=== PATIENT | female | born 1950 | race Caucasian/White ===

== ENCOUNTER → 2022-06-11 13:00 | Outpatient (CLI) | payer MEDICARE, SELFPAY ==
--- NOTE | ~2022-06-11 | XR_ITS ---
XR lumbar spine 2-3V 06/11/2022 13:57 Indication: Low back pain Procedure: 3 views lumbar spine Comparison: No prior studies for comparison. Findings: There is dextroscoliosis centered at L3. There is disc narrowing at all lumbar levels. Ther e is advanced multilevel facet hypertrophy. No evidence for acute fracture or spondylolisthesis. Ther e is mild atherosclerosis. There are cholecystectomy clips. Sacral foramen are symmetric. Impression: 1: Severe lumbar spondylosis with dextroscoliosis.. Reviewed, dictated and finalized at location A. Impression: 1: Severe lumbar spondylosis with dextroscoliosis..
--- NOTE | ~2022-06-11 | XR_ITS ---
XR hip LT min 2V DATE: 06/11/2022 13:57 INDICATION: Left hip pain TECHNIQUE: AP and lateral views COMPARISON: None FINDINGS: No fracture or dislocation, avascular necrosis or bone destruction. Left hip joint space is relatively well preserved. The pubic symphysis and sacroiliac joints appear intact. IMPRESSION: No significant abnormality Reviewed, dictated and finalized at location A. IMPRESSION: No significant abnormality
== END ==
PROVIDERS: PCP Internal Medicine; Visit Provider Internal Medicine
DX: M54.42 Lumbago with sciatica, left side (principal); M25.552 Pain in left hip; M47.896 Other spondylosis, lumbar region
CPT/HCPCS: 72100; 73502

== ENCOUNTER 2023-10-05 14:06 | Outpatient (CLI) | payer MEDICARE, SELFPAY ==
--- NOTE | ~2023-10-05 | CT_ITS ---
EXAMINATION: CT abdomen pelvis wo/w con DATE: 10/05/2023 14:54 INDICATION: Hematuria. TECHNIQUE: Computed tomography (CT) of the abdomen and pelvis was performed without and with intraven ous contrast using a total of 130 mL Omnipaque-350 intravenous contrast with a double-bolus technique for simultaneous opacification of the renal parenchyma and renal collecting system. Automated exposu re control and iterative reconstruction technique were employed. The dose-length product was 1511.86 mGy-cm. COMPARISON: None FINDINGS: The visualized portions of the lung bases demonstrate mild atelectasis. No pleural effusion. The hear t size is normal. There are coronary artery calcifications. No pericardial effusion. There is a 6 mm cyst in the liver. There are changes of cholecystectomy. The spleen is normal. There is a 14 mm cysti c lesion in the head of the pancreas. The adrenal glands are normal. Right kidney is normal. There is a 7.8 x 5.1 cm enhancing mass in left kidney with extension into left renal vein. There is no urolit hiasis. There is mild left hydronephrosis. The ureters are not well opacified. There is hematoma in p roximal left ureter and in the bladder. There are no dilated loops of bowel. Aortic atherosclerosis i s noted. There are no pathologically enlarged lymph nodes. There is no free intraperitoneal fluid. Th ere is lumbar dextroscoliosis and severe spondylosis. IMPRESSION: 1. 7.8 x 5.1 cm enhancing mass in left kidney with extension into left renal vein, consistent with re nal cell carcinoma. 2. Hematoma in the bladder and proximal left ureter with mild left hydronephrosis. 3. 14 mm cystic lesion in the head of the pancreas. The differential diagnosis includes pseudocyst, i ntraductal papillary mucinous neoplasm (IPMN), mucinous cystic neoplasm (MCN), serous cystadenoma, an d neuroendocrine tumor. Abdomen MRI without and with contrast is recommended in 2 years. Reviewed, dictated and finalized at location E. 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 7.8 x 5.1 cm enhancing mass in left kidney with extension into left renal ve in, consistent with renal cell carcinoma. 2. Hematoma in the bladder and proximal left ureter with mild left hydronephros is. 3. 14 mm cystic lesion in the head of the pancreas. The differential diagnosis includes pseudocyst, intraductal papillary mucinous neoplasm (IPMN), mucinous c ystic neoplasm (MCN), serous cystadenoma, and neuroendocrine tumor. Abdomen MRI without and with contrast is recommended in 2 years.
[2023-10-05 14:36] LABS: Estimated Glomerular Filt Rate 34
== END 2023-10-05 14:07 | disposition home or self-care (01) ==
PROVIDERS: PCP Internal Medicine; Visit Provider Internal Medicine
DX: R31.9 Hematuria, unspecified (principal); D49.512 Neoplasm of unspecified behavior of left kidney; S37.22XA Contusion of bladder, initial encounter; S37.12XA Contusion of ureter, initial encounter; N13.30 Unspecified hydronephrosis; K86.2 Cyst of pancreas
CPT/HCPCS: 74178; Q9967

== ENCOUNTER 2023-10-06 12:11 | Emergency (ER) | payer MEDICARE, SELFPAY ==
[2023-10-06] VITALS (18 sets, daily range): BP systolic 104–137; BP diastolic 54–90; PULSE 78–95; RESP 16–26; TEMP 36.2–37; O2SAT 90–100
[2023-10-06 13:31] LABS: Basophils Absolute Auto 0.1 K/mm3 (0.0-0.1); Basophils Percent Auto 0.9 % (0.2-1.2); Eosinophils Absolute Auto 0.1 K/mm3 (0-0.3); Eosinophils Percent Auto 0.4 % (0-4.4); Hematocrit 38.2 % (37.0-47.0); Hemoglobin 11.9 g/dL (12.0-15.0); Immature Granulocyte Absolute 0.06 K/mm3 (0.00-0.031); Immature Granulocyte Percent A 0.4 % (0-0.5); Lymphocytes Absolute Auto 1.93 K/mm3 (0.9-3.2); Lymphocytes Percent Auto 13.8 % (18.3-44.2); Mean Corpuscular HGB Conc 31.2 g/dl (32-36); Mean Corpuscular Hemoglobin 30.9 pg (26-34); Mean Corpuscular Volume 99.2 fl (80-100); Mean Platelet Volume 10.9 fl (7.4-10.4); Monocytes Absolute Auto 1.5 K/mm3 (0.1-0.6); Monocytes Percent Auto 10.8 % (2.6-8.5); Neutrophils Absolute Auto 10.3 K/mm3 (1.3-6.7); Neutrophils Percent Auto 73.7 % (45.5-73.1); Platelet Count Result 192 k/mm3 (150-375); Red Blood Count 3.85 M/mm3 (4.2-5.4); Red Cell Distribution Width 13.3 % (11.5-14.5); White Blood Count 13.9 K/mm3 (4.5-10.0)
[2023-10-06] MEDS: MORPHINE SULFATE (*CRX) 4 MG/ML INJ IV PUSH (13:37)
--- NOTE | 2023-10-06 13:41 | PC.NURSE ---
Oxygen at 2L nasal cannula applied. Pt history of asthma Sao2 drops to 88% while resting. Morphine given for pain
--- NOTE | 2023-10-06 14:13 | ED.FEMALEGU ---
HPI - Female Genitourinary General Chief complaint: Urogenital-Female Stated complaint: urinary retention Time Seen by Provider: 10/06/23 12:39 Source: patient Limitations: no limitations History of Present Illness HPI Narrative: This is a 73 year old female who presents with complaint of inability to urinate. Patient has been having hematuria since Tuesday and underwent a CT yesterday, ordered by her PCP Dr Gao in [place]. She has the written impression from the CT scan with her but has not reviewed it with a physician. No history of kidney issues. She had been having dribbling but now feels full and uncomfortable. 10 low abdominal pain. Denies dysuria. She was having similar issues yesterday after CT scan but took her amoxicillin, Azo, and a Xanax to sleep overnight. She did have an episode of vomiting and felt better. Related Data Allergies Allergy/AdvReac Type Severity Reaction Status Date / Time No Known Allergies Allergy Verified 10/06/23 13:24 [facility] Social History Social History Smoking status: Never smoker Exam Const: General: healthy appearing and alert; No diaphoretic or ill appearing Nutritional Appearance: well nourished Orientation/consciousness: patient oriented x3 and No confusion Limitations: no limitations HENMT: Head: normal to inspection Other: gross auditory acuity intact Eyes: Direct Ophthalmoscopy: no photophobia Neck: Neck: normal visual inspection Resp: Effort & Inspection: normal respiratory effort, not labored, no retractions, not tachypneic and no use of accessory muscles Cardio: Rate: regular rate, not bradycardic and not tachycardic GI: Inspection: distended GI Palp: Yes Soft to palpation, No Rigid due to palpation and No Rebound tenderness present : General: Yes Bladder palpation abnormal distended Skin: General skin exam: normal color and no jaundice Neuro: General: patient oriented x3 and moves all extremities Speech: normal speech Psych: Appearance: grossly normal Mental Status: mental status grossly normal Affect: normal affect, No Sad affect present and No Anxious affect present Attitude: cooperative Course Vital Signs Vital signs: Vital Signs Temperature 97.2 F L 10/06/23 12:21 Pulse Rate 95 10/06/23 12:21 Respiratory Rate 16 10/06/23 12:21 Blood Pressure 114/65 10/06/23 12:21 Pulse Oximetry 90 10/06/23 12:21 Oxygen Delivery Room Air 10/06/23 12:21 Temperature 98.6 F 10/06/23 13:42 Pulse Rate 87 10/06/23 17:16 Respiratory Rate 23 H 10/06/23 17:16 Blood Pressure 116/60 10/06/23 17:16 Pulse Oximetry 100 10/06/23 17:16 Oxygen Delivery Room Air 10/06/23 12:21 MDM - Female Genitourinary MDM Narrative Medical decision making narrative: Patient presents with acute onset urinary retention and associated abdominal fullness and discomfort. Hemodynamically stable on exam but appears uncomfortable. Per review of CT abd/pelvis she underwent yesterday, patient has renal cell carcinoma. Bladder scan performed by RN and then indwelling Holt catheter placed which drains hematuria. Patient feeling better after this as well as analgesia on my repeat assessment. I did discuss patient with analysis consultant urologist Dr Silverio at 16:28 via phone to ensure she would have appropriate follow up. He stated she could call their group tomorrow and they would get her in to see a specialist in this area. In addition he came down to the Emergency Department and discussed patient's diagnosis and next steps with her in person and confirmed with me in person that the plan has been laid out and she verifies understanding. His urology group will call her tomorrow for an appointment but she will also be given clinic contact information to ensure appropriate follow up. Patient to go home with Holt catheter remaining and a leg bag. Differential Diagnosis Differential diagnosis: Lik
[2023-10-06 14:33] LABS: Alanine Aminotransferase 28 U/L (6-35); Albumin Level 3.6 g/dL (3.5-5.1); Alkaline Phosphatase 61 U/L (38-126); Anion Gap 6 mmol/L (8-16); Aspartate Amino Transferase 32 U/L (14-36); Bilirubin,Total 0.7 mg/dL (0.2-1.3); Blood Urea Nitrogen 21 mg/dL (7-17); Carbon Dioxide 30 mmol/L (22-30); Chloride 101 mmol/L (98-107); Estimated CRCL calculation 31 ml/min; Estimated Glomerular Filt Rate 34; Glucose 96 mg/dL (65-110); Lipase 23 U/L (23-300); Potassium 4.1 mmol/L (3.4-5.0); Sodium 137 mmol/L (137-145)
--- NOTE | 2023-10-06 14:40 | PC.NURSE ---
Pt c/o chest pain that radiates to her back, rates pain 9. Michelle Diaz informed and EKG obtained
--- NOTE | 2023-10-06 14:52 | ECG_ITS ---
Measurements Intervals [place] Rate: 84 P: 27 AR: 158 QRS: 10 QRSD: 104 T: 19 QT: 376 QTc: 447 Interpretive Statements SINUS RHYTHM BORDERLINE ST-T WAVE ABNORMALITY- INFERIOR LEADS BASELINE ARTIFACT- I, III, AVL, V6 BORDERLINE ECG NO PREVIOUS ECG AVAILABLE FOR COMPARISON Electronically Signed On 10-06-2023 15:13:53 [employer]IOR SYSTEMS CARPENTER by Diego Diego D.O.
[2023-10-06 15:11] LABS: Bacteria Urine None Seen /hpf; Need Manual Microscopic Reviewed; Non Pathogenic Casts 0-2; RBC Urine 21-50 /hpf (0-2); Squamous Epithelial Cell Urine Occasional /hpf (Few); WBC Urine 0-5 /hpf
[2023-10-06 15:13] LABS: Appearance Urine Cloudy (Clear); Bilirubin Urine 1+ (Negative); Blood Urine 3+ (Negative); Glucose Urine UA Negative (Negative); Ketones Urine Negative (Negative); Leukocyte Esterase Ur 1+ LEU/UL (Negative); Nitrate Urine Positive (Negative); Protein Urine 1+ mg/dL (Negative)
[2023-10-06 15:14] LABS: Add Urine Microscopic? YES; Color Urine Dark Yellow (Yellow); Specific Grav Ur 1.043 (1.001-1.035)
--- NOTE | 2023-10-06 17:28 | WPDURCON ---
Assessment and Plan Assessment and plan (1) Renal cell carcinoma: Qualifiers: Laterality: unspecified laterality Qualified Code(s): C64.9 - Malignant neoplasm of unspecified kidney, except renal pelvis Code(s): C64.9 - Malignant neoplasm of unspecified kidney, except renal pelvis Status: Acute (2) Hematuria: Code(s): R31.9 - Hematuria, unspecified Status: Acute Assessment and Plan: 7cm solid enhancing left renal mass consistent with renal cell carcinoma. There appears to be extension in the left renal vein Urinary tension with soft tissue material in the bladder consistent with probable clot. This may be contributing to her urinary retention although hypotonic bladder is also a possibility/consideration. I will arrange for follow-up both with one of my partners who specializes in kidney surgery (will require a visit to one of our offices in [place] for renal cell carcinoma and in our [place] office for urodynamics/cystoscopy and further evaluation of urinary retention. My office will contact patient tomorrow, Tuesday10/07/2023, to arrange appropriate follow-up as above (3) Urinary retention with incomplete bladder emptying: Code(s): R33.9 - Retention of urine, unspecified Status: Acute Urology Consult Note HPI Date Seen: 10/06/23 Requesting Physician: Dr. Martinez Primary Care Provider: Sonia De La Torre, Consult Narrative Narrative: Zaira Elias is a most pleasant 73-year-old female who is previously unknown to our practice. She presents to the ED with complaints of urinary retention. In close questioning, however, she has also noted hematuria. She 1st had an episode of hematuria approximately 3 years ago. Primary care physician treated her with oral antibiotics and older if it recurred she would need referral to a urologist. Somewhat surprisingly, the hematuria has not recurred until today where she now presents with both hematuria and urinary retention. A Gardner catheter was placed with drainage of about 500 cc of slightly blood-tinged urine. The greater significance however is the CT scan the abdomen pelvis which demonstrates a 7 cm enhancing solid left renal mass consistent with renal cell carcinoma. There appears to be possible extension into the left renal vein. She denies constitutional symptoms specifically denying unexplained weight loss, fevers night sweats. She does have left flank pain but has chronic pain from degenerative joint disease. Review of Systems Cardiovascular: Cardiovascular: Denies chest pain, Denies lightheadedness, Denies palpitations and Denies dyspnea Respiratory: Respiratory: Denies dyspnea Gastrointestinal: Gastrointestinal: Denies diarrhea, Denies nausea and Denies vomiting Genitourinary: Genitourinary: Reports hematuria, Reports urinary frequency and Denies dysuria Endocrine: Endocrine: Denies palpitations [facility] Social History Social History Smoking status: Never smoker Meds Home Medications and Allergies Allergies Allergy/AdvReac Type Severity Reaction Status Date / Time No Known Allergies Allergy Verified 10/06/23 13:24 Vital Signs Vital Signs - 24 hr 10/06/23 12:21 10/06/23 13:42 10/06/23 12:46 Temperature 97.2 F L 98.6 F Pulse Rate 95 93 78 Respiratory Rate 16 18 20 Blood Pressure 114/65 126/65 104/54 L Pulse Oximetry 90 98 92 Oxygen Delivery Room Air 10/06/23 13:31 10/06/23 13:46 10/06/23 14:01 Temperature Pulse Rate 88 90 85 Respiratory Rate 21 H 19 18 Blood Pressure 126/65 133/71 131/74 Pulse Oximetry 99 97 99 Oxygen Delivery 10/06/23 14:16 10/06/23 14:31 10/06/23 14:46 Temperature Pulse Rate 86 82 87 Respiratory Rate 19 20 16 Blood Pressure 137/74 109/90 134/69 Pulse Oximetry 100 100 96 Oxygen Delivery 10/06/23 15:01 10/06/23 15:31 10/06/23 15:45 Temperature Pulse Rate 91 91 86 Res
== END 2023-10-06 17:57 | disposition home or self-care (01) ==
PROVIDERS: Emergency Provider Student in an Organized Health Care Education/Training Program; PCP Internal Medicine
DX: C64.9 Malignant neoplasm of unspecified kidney, except renal pelvis (principal); R31.9 Hematuria, unspecified; R33.9 Retention of urine, unspecified; R94.31 Abnormal electrocardiogram [ECG] [EKG]
CPT/HCPCS: 36415; 80053; 81001; 83690; 85025; 93005; 96374; 99284; J2270

== ENCOUNTER 2023-12-23 08:30 | Outpatient (CLI) | payer MEDICARE, SELFPAY ==
--- NOTE | ~2023-12-23 | XR_ITS ---
XR_CERV2-3V_CR 12/23/2023 09:20 Indication: Neck pain Procedure: 3 view cervical spine Comparison: No prior studies for comparison. Findings: There is disc narrowing and endplate degenerative change at C5-6. Prominent marginal osteop hytes. No prevertebral soft tissue abnormality. Odontoid process is normal. There is multilevel uncin ate and facet hypertrophy. Craniovertebral junction is normal. Impression: 1: Moderate cervical spondylosis. Reviewed, dictated and finalized at location B. RIAL HAULER Impression: 1: Moderate cervical spondylosis.
--- NOTE | ~2023-12-23 | XR_ITS ---
Right Shoulder Technique: AP and axillary views were obtained. Clinical History: Pain Findings: No fracture or dislocation is seen. Osseous alignment is anatomic. The glenohumeral and acr omioclavicular joint spaces are preserved. Soft tissues are unremarkable. Impression: Unremarkable right shoulder radiographs. Reviewed, dictated and finalized at [facility]. MANAGER Impression: Unremarkable right shoulder radiographs.
--- NOTE | ~2023-12-23 | XR_ITS ---
Left Shoulder Technique: AP and axillary views were obtained. Clinical History: Pain Findings: No fracture or dislocation is seen. Left humeral head suture anchors noted. Probable prior distal clavicular resection. Osseous alignment is anatomic. The glenohumeral and acromioclavicular ana int spaces are preserved. Soft tissues are unremarkable. Impression: No acute abnormality. Postoperative changes, as above. Reviewed, dictated and finalized at location . ATTENDANT Impression: No acute abnormality. Postoperative changes, as above.
== END 2023-12-23 08:31 ==
PROVIDERS: PCP Internal Medicine; Visit Provider Internal Medicine
DX: M47.812 Spondylosis without myelopathy or radiculopathy, cervical region (principal)
CPT/HCPCS: 72040; 73030

== ENCOUNTER 2024-01-16 11:13 | Outpatient (CLI) | payer MEDICARE, SELFPAY ==
--- NOTE | ~2024-01-16 | US_ITS ---
Renal-Bladder ultrasound Clinical History: Elevated creatinine Technique: Real-time sonographic imaging of the kidneys and urinary bladder was performed. Findings: The right kidney measures 11.3 cm in length. No right hydronephrosis or renal stone. No rig ht renal mass seen. Right renal arteries is unremarkable. Left kidney absent. The urinary bladder is partially distended at the time of this exam. No intraluminal echoes are ident ified. No abnormal wall thickening is seen. Impression: Unremarkable right kidney and urinary bladder. Status post presumed left nephrectomy. Reviewed, dictated and finalized at location . 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 Status post presumed left nephrectomy.
== END 2024-01-16 11:14 ==
LOC: MICIMG 11:14
PROVIDERS: PCP Internal Medicine; Visit Provider Internal Medicine
DX: R79.89 Other specified abnormal findings of blood chemistry (principal)
CPT/HCPCS: 76775

== ENCOUNTER 2024-03-13 10:38 | Outpatient (CLI) | payer MEDICARE, SELFPAY ==
--- NOTE | ~2024-03-13 | XR_ITS ---
AP and lateral views of the right hip Clinical history: Pain Findings: No acute fracture or dislocation is seen. Osseous alignment is anatomic. Right hip joint sp aces preserved. Soft tissues are unremarkable. Impression: No significant abnormality is seen. Reviewed, dictated and finalized at location . Impression: No significant abnormality is seen.
== END 2024-03-13 10:39 ==
PROVIDERS: PCP Internal Medicine; Visit Provider Internal Medicine
DX: M79.671 Pain in right foot (principal); M25.551 Pain in right hip
CPT/HCPCS: 73502; 73630

== ENCOUNTER 2024-03-27 15:21 | Outpatient (CLI) | payer MEDICARE, SELFPAY ==
--- NOTE | ~2024-03-27 | XR_ITS ---
XR chest 2V 03/27/2024 15:36 Indication: Cough Procedure: 2 view chest Comparison: No prior studies for comparison. Findings: Heart size is normal. No focal air space disease, pulmonary edema, pleural effusion or susp ected pneumothorax. There is a clavicular osteotomy. Impression: 1: No acute cardiopulmonary disease. Reviewed, dictated and finalized at location B. Impression: 1: No acute cardiopulmonary disease.
== END 2024-03-27 15:22 ==
PROVIDERS: PCP Internal Medicine; Visit Provider Internal Medicine
DX: R05.9 Cough, unspecified (principal)
CPT/HCPCS: 71046

== ENCOUNTER 2024-06-19 09:00 | Outpatient (CLI) | payer MEDICARE, SELFPAY ==
--- NOTE | ~2024-06-19 | XR_ITS ---
XR hand LT 2V Ordering provider: May Montoya, MIKA History: . polyarthralgia pain and swelling in hands no injury . Comparison: None. FINDINGS: BONES: No acute fracture or dislocation. JOINT SPACES: Osteoarthritic changes of the distal interphalangeal joints. Soft tissues: Normal. IMPRESSION: No acute osseous abnormality. Osteoarthritic changes of the distal interphalangeal joints. Reviewed, dictated and finalized at location A.
--- NOTE | ~2024-06-19 | XR_ITS ---
XR hand RT 2V Ordering provider: May Montoya, MIKA History: . polyarthralgia pain and swelling in hands no injury . Comparison: None. FINDINGS: BONES: No acute fracture or dislocation. JOINT SPACES: Narrowing of the distal interphalangeal joints. SOFT TISSUES: Normal. IMPRESSION: No acute osseous abnormality right hand. Osteoarthritic changes in the distal interphalangeal joints. Reviewed, dictated and finalized at location A.
== END 2024-06-19 09:01 ==
LOC: MICIMG 09:06
PROVIDERS: PCP Internal Medicine; Visit Provider Physician Assistant
DX: M19.042 Primary osteoarthritis, left hand (principal); M19.041 Primary osteoarthritis, right hand
CPT/HCPCS: 73120

== ENCOUNTER 2024-12-04 10:17 | Outpatient (CLI) | payer MEDICARE, SELFPAY ==
--- NOTE | ~2024-12-04 | XR_ITS ---
EXAMINATION: XR chest 2V 12/04/2024 10:33 INDICATION: Cough PROCEDURE: 2 view chest COMPARISON: 03/27/2024 FINDINGS: The lungs are clear. The cardiomediastinal silhouette is within normal limits. There are no pleural effusions. There is no pneumothorax suspected. IMPRESSION: 1: NO ACUTE CARDIOPULMONARY DISEASE. Reviewed, dictated and finalized at location B. 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
== END 2024-12-04 10:18 | disposition home or self-care (01) ==
LOC: MICIMG 10:19
PROVIDERS: PCP Internal Medicine; Visit Provider Internal Medicine
DX: R05.9 Cough, unspecified (principal)
CPT/HCPCS: 71046

== ENCOUNTER 2025-03-08 09:17 | Outpatient (CLI) | payer MEDICARE, SELFPAY ==
--- NOTE | ~2025-03-08 | XR_ITS ---
Clinical Indication: Cough PA and lateral views of the chest: Comparison: 12/04/2024 Findings: The lungs are clear, without evidence of focal consolidation or pleural effusion. Cardiome diastinal silhouette is within normal limits. Bones and soft tissues are unremarkable. Impression: Normal chest. Reviewed, dictated and finalized at location . Impression: Normal chest.
== END 2025-03-08 09:18 | disposition home or self-care (01) ==
LOC: MICIMG 09:19
PROVIDERS: PCP Internal Medicine; Visit Provider Internal Medicine
DX: R05.8 Other specified cough (principal)
CPT/HCPCS: 71046

== ENCOUNTER 2025-07-15 08:49 | Outpatient (CLI) | payer MEDICARE, SELFPAY | END 2025-07-15 08:50 | disposition home or self-care (01) | LOC: MICIMG 08:51 | PROVIDERS: PCP Internal Medicine; Visit Provider Internal Medicine | DX: M25.571 Pain in right ankle and joints of right foot (principal); Z78.0 Asymptomatic menopausal state | CPT/HCPCS: 73610 ==

== ENCOUNTER 2025-10-21 11:24 | Outpatient (CLI) | payer MEDICARE, SELFPAY ==
--- NOTE | ~2025-10-21 | XR_ITS ---
EXAMINATION: XR chest 2V, 10/21/2025 11:31 SPA CONCIERGE HISTORY: Cough variant asthma COMPARISON: No comparisons available. Technique: 2 views obtained. Findings: The lungs are clear, no effusion. No pneumothorax. Heart is normal size. Mediastinal and hilar contours are within normal limits. Bony thorax no acute abnormality. Impression: No acute cardiopulmonary abnormality. Reviewed, dictated and finalized at location P. CONCIERGE Impression: No acute cardiopulmonary abnormality.
== END 2025-10-21 11:25 | disposition home or self-care (01) ==
LOC: MICIMG 11:26
PROVIDERS: PCP Internal Medicine; Visit Provider Internal Medicine
DX: J45.901 Unspecified asthma with (acute) exacerbation (principal)
CPT/HCPCS: 71046